=== PATIENT | female | born 1965 | race Caucasian/White ===

== ENCOUNTER → 2016-12-20 | Outpatient (CLI) | payer BC | END | disposition home or self-care (01) | LOC: C.PAPS 15:56 | PROVIDERS: ATTEND Obstetrics & Gynecology | DX: Z01.411 Encounter for gynecological examination (general) (routine) with abnormal findings (principal); R87.616 Satisfactory cervical smear but lacking transformation zone ==

== ENCOUNTER → 2017-09-15 | Outpatient (CLI) | payer OTHER | END | disposition home or self-care (01) | LOC: C.PAPS 14:12 → C.PATHSPEC 14:14 | PROVIDERS: ATTEND Obstetrics & Gynecology | DX: N95.0 Postmenopausal bleeding (principal); N85.8 Other specified noninflammatory disorders of uterus ==

== ENCOUNTER → 2017-09-15 | Outpatient (CLI) | payer OTHER ==
[2017-09-15 14:34] LABS: FOLLICLE STIMULAT HORMONE 30.3 IU/L; LUTEINIZING HORMONE 13.46 IU/L
== END | disposition home or self-care (01) ==
LOC: C.LAB1850 12:09
PROVIDERS: ATTEND Obstetrics & Gynecology
DX: N95.0 Postmenopausal bleeding (principal)

== ENCOUNTER → 2017-12-27 | Outpatient (CLI) | payer OTHER | LOC: C.PAPS 13:33 | PROVIDERS: ATTEND Obstetrics & Gynecology | DX: Z12.4 Encounter for screening for malignant neoplasm of cervix (principal) ==